=== PATIENT | female | born 1985 | race Two or more races ===

== ENCOUNTER 2020-12-22 11:29 | Emergency (ER) | payer MEDICAID, SELFPAY ==
--- NOTE | 2020-12-23 14:44 | ED.GENADULT ---
HPI - General Adult General Stated complaint: TOOTH PAIN History of Present Illness HPI narrative: I was informed patient LwT from the waiting room I was not involved in patient's care. Related Data Allergies Allergy/AdvReac Type Severity Reaction Status Date / Time codeine Allergy Severe ABDOMINAL Unverified 08/11/20 17:09 [From Tylenol-Codeine] CRAMPING, nausea vomiting amoxicillin [AMOXICILLIN] Allergy Unknown DIARRRHEA, Unverified 08/11/20 17:09 swelling in the feet, rash, nause, swelling of feet, diarrhea ibuprofen [From MOTRIN] Allergy Unknown STOMACH Unverified 08/11/20 17:09 UPSET, upset stomach/stomach pain Codeine Sulfate Allergy Unknown headaches, Uncoded 05/22/17 00:00 upset stomach PMFSH Social History Social History Advance Directives: No Advance Directives Information Provided: No Discharge Plan Discharge Patient Disposition: Left Without Being Seen Interventions: LWBS Worksheet Last Done: 12/22/20 12:17 Discharge Date/Time: 12/22/20 12:50
== END 2020-12-22 12:50 | disposition left against medical advice (07) ==
PROVIDERS: Emergency Provider Emergency Medicine
DX: K08.89 Other specified disorders of teeth and supporting structures (principal)

== ENCOUNTER 2021-11-22 12:17 | Outpatient (REF) | payer MEDICAID, SELFPAY ==
--- NOTE | ~2021-11-22 | XR_ITS ---
EXAMINATION: CR RIGHT ELBOW. CR CERVICAL SPINE. CLINICAL INFORMATION: Cervical pain radiating down arm into right elbow. COMPARISON: C-spine films dated 01/21/2013. CT scan of the cervical spine dated 08/05/2015. TECHNIQUE: 3 views of the right elbow. 5 views of the cervical spine. FINDINGS: Right elbow: No acute fracture, dislocation, abnormal elbow joint effusion or joint calcification seen. No significant arthritic change noted. No radiopaque foreign body in the soft tissues. Cervical spine: Straightening of the cervical spine is seen, possibly related to muscle spasm versus patient positioning. No acute fracture or dislocation. Prevertebral soft tissues normal in thickness. Craniocervical junction and atlantoaxial articulations intact. No significant spondylosis. No significant facet arthropathy. Neural foramina bilaterally widely patent. XR/XR elbow RT min 3V IMPRESSION: 1. Normal right elbow. 2. Straightening of cervical spine, possibly related to muscle spasm versus patient positioning. Clinical correlation requested. 3. No cervical spine fracture.
--- NOTE | ~2021-11-22 | XR_ITS ---
EXAMINATION: CR RIGHT ELBOW. CR CERVICAL SPINE. CLINICAL INFORMATION: Cervical pain radiating down arm into right elbow. COMPARISON: C-spine films dated 01/21/2013. CT scan of the cervical spine dated 08/05/2015. TECHNIQUE: 3 views of the right elbow. 5 views of the cervical spine. FINDINGS: Right elbow: No acute fracture, dislocation, abnormal elbow joint effusion or joint calcification seen. No significant arthritic change noted. No radiopaque foreign body in the soft tissues. Cervical spine: Straightening of the cervical spine is seen, possibly related to muscle spasm versus patient positioning. No acute fracture or dislocation. Prevertebral soft tissues normal in thickness. Craniocervical junction and atlantoaxial articulations intact. No significant spondylosis. No significant facet arthropathy. Neural foramina bilaterally widely patent. XR/XR cervical spine 4V IMPRESSION: 1. Normal right elbow. 2. Straightening of cervical spine, possibly related to muscle spasm versus patient positioning. Clinical correlation requested. 3. No cervical spine fracture.
== END 2021-11-22 12:18 | disposition home or self-care (01) ==
LOC: HO.XRAY 12:17
PROVIDERS: PCP Internal Medicine; Visit Provider Emergency Medicine
DX: M25.521 Pain in right elbow (principal); M54.2 Cervicalgia; S89.92XA Unspecified injury of left lower leg, initial encounter
CPT/HCPCS: 72050; 73080

== ENCOUNTER 2022-08-21 09:30 | Outpatient (REF) | payer MEDICAID, SELFPAY ==
[2022-08-21 10:35] LABS: COVID-19 Test Positive (Negative); IDNOW Serial# 55D5AD1C
== END 2022-08-21 09:31 | disposition home or self-care (01) ==
LOC: HO.LAB 09:30
PROVIDERS: Visit Provider Internal Medicine
DX: Z20.822 Contact with and (suspected) exposure to COVID-19 (principal)
CPT/HCPCS: 87635; C9803

== ENCOUNTER 2022-12-20 10:11 | Outpatient (REF) | payer MEDICAID, SELFPAY ==
--- NOTE | ~2022-12-20 | XR_ITS ---
EXAMINATION: XR elbow LT min 3V CLINICAL INFORMATION: Elbow pain COMPARISON: Elbow radiographs 11/22/2021 TECHNIQUE: 3 views of the elbow XR/XR elbow LT min 3V FINDINGS/IMPRESSION: Tiny osseous fragment noted adjacent to the lateral epicondyle may reflect sequelae of age-indeterminate avulsion injury. Joint spaces are maintained. No joint effusion. Soft tissues are unremarkable.
--- NOTE | ~2022-12-20 | XR_ITS ---
EXAMINATION: XR LUMBOSACRAL SPINE CLINICAL INFORMATION: Reason for Exam LOW BACK PAIN COMPARISON: Lumbar spine radiographs 06/04/2018 TECHNIQUE: 5 views of the lumbar spine FINDINGS: 5 nonrib-bearing lumbar-type vertebral bodies. Vertebral body heights are maintained. Alignment is maintained. No pars defects. Disc space heights are maintained. Paravertebral soft tissues are unremarkable. XR/XR lumbar spine 4V min IMPRESSION: * No significant degenerative disc disease.
== END 2022-12-20 10:12 | disposition home or self-care (01) ==
LOC: HO.XRAY 10:11
PROVIDERS: Visit Provider Internal Medicine
DX: M54.50 Low back pain, unspecified (principal); G89.29 Other chronic pain; S32.009S Unspecified fracture of unspecified lumbar vertebra, sequela
CPT/HCPCS: 72110; 73080

== ENCOUNTER 2023-01-09 10:29 | Outpatient (REF) | payer MEDICAID, SELFPAY ==
--- NOTE | ~2023-01-09 | MR_ITS ---
EXAMINATION: MR LUMBAR SPINE WITHOUT CONTRAST CLINICAL INFORMATION: Chronic low back pain. COMPARISON: Plain films of the lumbar spine 12/20/2022. MRI scan of the lumbar spine 11/04/2014. TECHNIQUE: MRI of the lumbar spine was obtained using routine sequences without contrast. FINDINGS: VERTEBRAL BODIES AND PARASPINAL STRUCTURES: There is anatomic alignment of the vertebral bodies. Intervertebral disc heights are maintained, but there is mild disc desiccation at L4-L5. The vertebral bodies have normal height and contour and no fractures are demonstrated. Marrow signal is homogenous. The visualized retroperitoneal structures are unremarkable. There are multiple small adnexal cysts bilaterally, more numerous on the left. CONUS MEDULLARIS AND CAUDA EQUINA: Normal, terminating at the level of L1. The lower thoracic spinal cord appears normal. The cauda equina nerve roots and filum terminale appear normal. SPINAL LEVELS: L1-L2: The facet joints appear normal bilaterally. Disc contour is normal. There is no central stenosis or foraminal narrowing. L2-L3: The facet joints appear normal bilaterally. Disc contour is normal. There is no central stenosis or foraminal narrowing. L3-L4: The facet joints appear normal. There is a left foraminal disc protrusion with impingement on the exiting left L3 nerve root, new compared to prior imaging. There is no central stenosis. L4-L5: The facet joints appear normal. There is a posterior disc protrusion which is most prominent in the midline which distorts the ventral thecal sac and there is mild narrowing of the bilateral subarticular recesses, new compared to prior imaging. There is mild central stenosis. There is an inferior foraminal disc protrusion on the left without exiting nerve root impingement. L5-S1: The facet joints appear normal bilaterally. There is mild diffuse disc bulge, but there is no central stenosis. The neural foramina are patent bilaterally. MR/MR lumbar spine wo con IMPRESSION: 1. At L3-L4 there is a left foraminal disc protrusion impinging on the exiting left L3 nerve root. There is no central stenosis. 2. At L4-L5 there is a posterior disc protrusion which distorts the ventral thecal sac and there is mild narrowing of the subarticular recesses. There is mild central stenosis. 3. There are no acute fractures or subluxations.
== END 2023-01-09 10:30 | disposition home or self-care (01) ==
LOC: HO.MRI 10:29
PROVIDERS: Visit Provider Internal Medicine
DX: M54.50 Low back pain, unspecified (principal); R10.33 Periumbilical pain
CPT/HCPCS: 72148; 99202

== ENCOUNTER 2023-01-24 10:15 | Outpatient (REF) | payer MEDICAID, SELFPAY ==
--- NOTE | ~2023-01-24 | CT_ITS ---
EXAMINATION: CT ABDOMEN AND PELVIS WITHOUT CONTRAST CLINICAL INFORMATION: Periumbilical pain. COMPARISON: CT abdomen and pelvis dated 12/24/2017. TECHNIQUE: Multidetector volumetric imaging was performed from the superior aspect of the liver through the pubic symphysis. Sagittal and coronal reformatted images were obtained on the technologist's workstation. This CT examination was performed using dose optimization techniques as appropriate, variously including the following: *Automated exposure control *Adjustment of mA and/or kV according to patient size (this includes techniques or standardized protocols for targeted exams where dose is matched to indication/reason for exam; i.e. extremities or head) *Use of iterative reconstruction technique DLP: 607 mGy-cm FINDINGS: LUNG BASES: There is mild left base linear scar/subsegmental atelectasis. LIVER, GALLBLADDER, AND BILIARY TREE: The liver is normal in size, shape, and attenuation. No focal hepatic lesion or biliary ductal dilatation is present. The gallbladder is unremarkable with no evidence of radiopaque gallstones, gallbladder wall thickening, or obvious pericholecystic inflammatory changes. PANCREAS: Unremarkable. SPLEEN: Unremarkable. ADRENAL GLANDS: Unremarkable. KIDNEYS AND URETERS: The kidneys are normal in size, shape, and attenuation. No hydronephrosis, hydroureter, or calculi seen. No perinephric stranding. BLADDER: Unremarkable. GASTROINTESTINAL TRACT: There is minimal diverticulosis, without acute diverticulitis. No obstruction, free intraperitoneal air or abscess is seen. There is no focal bowel wall thickening. The vermiform appendix appears normal. ABDOMINAL WALL: There is a minimal fat-containing umbilical hernia. LYMPH NODES: Normal. VASCULAR: Unremarkable. PELVIC VISCERA: The uterus is unremarkable. The right ovary is somewhat prominent measuring 4.2 x 3.0 cm (4:567), and the left ovary measures approximately 2.6 x 1.9 cm (4:518). OSSEOUS STRUCTURES: Unremarkable. CT/CT abdomen pelvis wo IV con IMPRESSION: 1. There is minimal diverticulosis, without acute diverticulitis. 2. There is mild prominence of the right ovary, which can be further evaluated with dedicated pelvic ultrasound, if clinically indicated. 3. There is a minimal fat-containing umbilical hernia. Fleischner guidelines were followed.
== END 2023-01-24 10:16 | disposition home or self-care (01) ==
LOC: HO.CT 10:15
PROVIDERS: Visit Provider Surgery
DX: R10.33 Periumbilical pain (principal)
CPT/HCPCS: 74176

== ENCOUNTER → 2023-01-25 08:47 | Outpatient (BNVA) | payer MEDICAID, SELFPAY | PROVIDERS: PCP Internal Medicine; Visit Provider Physician Assistant | DX: M77.12 Lateral epicondylitis, left elbow (principal) | CPT/HCPCS: 99202 ==

== ENCOUNTER → 2023-02-04 11:04 | Outpatient (BNVA) | payer MEDICAID, SELFPAY | PROVIDERS: PCP Registered Nurse; Visit Provider Surgery | DX: R10.33 Periumbilical pain (principal) | CPT/HCPCS: 99212 ==

== ENCOUNTER → 2023-02-18 10:17 | Outpatient (BNVA) | payer MEDICAID, SELFPAY | PROVIDERS: PCP Registered Nurse; Visit Provider Internal Medicine | DX: M54.16 Radiculopathy, lumbar region (principal); M62.830 Muscle spasm of back | CPT/HCPCS: 99202 ==

== ENCOUNTER 2023-03-01 10:30 | Outpatient (REF) | payer MEDICAID, SELFPAY ==
--- NOTE | ~2023-03-01 | MM_ITS ---
EXAMINATION: MM DIAGNOSTIC DIGITAL BREAST TOMOSYNTHESIS, BILATERAL US TARGETED BREAST, LEFT CLINICAL INFORMATION: Palpable lump left breast The lifetime risk of breast cancer based on the Tyrer-Cuzick Model is 12.3%. COMPARISON: Mammography: None TECHNIQUE: Digital breast tomosynthesis is performed in both the craniocaudal and mediolateral oblique views along with computer-aided detection (CAD). Synthesized 2D images are generated from the tomosynthesis. Additional spot magnification views of the left breast in craniocaudal and 90 degree mediolateral views performed. Targeted left breast ultrasound. FINDINGS: There are scattered areas of fibroglandular density (ACR BI-RADS breast composition Category b). There are no significant masses, abnormal calcifications, or other abnormalities. There is a question of some microcalcifications about the region of palpable abnormality but which are seen to represent artifact. Targeted left breast ultrasound to palpable region did not demonstrate any abnormal cystic or solid masses. There is a small region of diminished density within the epidermis/dermis which may be related to bruise with no underlying parenchymal lesions. No edematous changes identified within the breast parenchyma. Results are discussed with the patient at time of visit. MM/MM tomosynthesis diagnostic BI IMPRESSION: No mammographic or ultrasound evidence of malignancy. ASSESSMENT: BI-RADS 1: Negative RECOMMENDATION: Clinical follow-up.
== END 2023-03-01 10:31 | disposition home or self-care (01) ==
LOC: HO.MAMMO 10:30
PROVIDERS: PCP Registered Nurse; Visit Provider Registered Nurse
DX: N63.24 Unspecified lump in the left breast, lower inner quadrant (principal); N63.23 Unspecified lump in the left breast, lower outer quadrant
CPT/HCPCS: 76642; 77062; 77066

== ENCOUNTER 2023-07-09 17:34 | Outpatient (REF) | payer MEDICAID, SELFPAY | END 2023-07-09 17:35 | disposition home or self-care (01) | LOC: HO.HHCLNP 17:34 | PROVIDERS: Visit Provider Internal Medicine | DX: R10.2 Pelvic and perineal pain (principal) | CPT/HCPCS: 87086; 87147 ==

== ENCOUNTER 2023-10-02 18:20 | Outpatient (REF) | payer MEDICAID, SELFPAY ==
[2023-10-04 21:34] LABS: C. trachomatis RNA TMA NOT DETECTED (NOT DETECTED); N. gonorrhoeae RNA TMA NOT DETECTED (NOT DETECTED)
== END 2023-10-02 18:21 | disposition home or self-care (01) ==
LOC: HO.HHCLNP 18:20
PROVIDERS: Visit Provider Family Medicine
DX: N39.0 Urinary tract infection, site not specified (principal)
CPT/HCPCS: 36415; 81513; 87086; 87147; 87491; 87591

== ENCOUNTER 2024-01-27 15:21 | Outpatient (REF) | payer MEDICAID, SELFPAY ==
[2024-01-27 16:31] LABS: Anion Gap 14 (12-20); Blood Urea Nitrogen 10 mg/dL (9-16); Calcium 9.9 mg/dL (8.4-10.2); Carbon Dioxide 29 mmol/L (22-29); Chloride 103 mmol/L (96-108); Estimated Glomerular Filt Rate > 60; Glucose Random 190 mg/dL (60-115); Potassium 4.8 mmol/L (3.3-5.1); Sodium 141 mmol/L (135-145)
== END 2024-01-27 15:22 | disposition home or self-care (01) ==
LOC: HO.LAB 15:21
PROVIDERS: PCP General Practice; Visit Provider General Practice
DX: L03.211 Cellulitis of face (principal)
CPT/HCPCS: 36415; 80048

== ENCOUNTER 2024-01-28 10:03 | Outpatient (REF) | payer MEDICAID, SELFPAY ==
--- NOTE | ~2024-01-28 | CT_ITS ---
EXAMINATION: CT FACIAL BONES WITH CONTRAST CLINICAL INFORMATION: Facial cellulitis. COMPARISON: CT facial bones 04/12/2016. TECHNIQUE: Axial 2 mm thin and reformatted 1 mm thin sagittal coronal images of facial bones were obtained following IV 85 metal Omnipaque 350. This CT examination was performed using dose optimization techniques as appropriate, variously including the following: *Automated exposure control *Adjustment of mA and/or kV according to patient size (this includes techniques or standardized protocols for targeted exams where dose is matched to indication/reason for exam; i.e. extremities or head) *Use of iterative reconstruction technique DLP: 211. mGy-cm FINDINGS: Visualized intracranial brain parenchyma appears symmetrical. The lateral ventricles are normal. There is diffuse mucoperiosteal thickening involving left maxillary, frontal, anterior and middle ethmoid sinuses. There is upward titration left left ostiomeatal and frontoethmoidal recesses from mucosal thickening. There is minimal right frontal and middle ethmoid sinus mucoperiosteal thickening. The bony sinus fuentes, lamina papyracea and cribriform plate is intact. There is mild annular displacement of medial wall left orbit likely old fracture. Otherwise the bony orbits are intact and symmetrical. Bilateral optic globe, optic nerve intra and extra conal soft tissues are normal. No periapical soft tissue seen. The nasal bone is normal. Visualized nasopharyngeal, oropharyngeal the airways widely patent. The parapharyngeal, prevertebral and paravertebral soft soft tissues are normal. Bilateral submandibular and parotid glands are symmetrical and normal. Bilateral TM joints are symmetric and normal. The mandible is intact. No periapical cyst or dental abscess seen. There the chain teeth along the upper mandible. No abnormal alveolar order buccal soft tissue tissue mass or abscess seen. There are nonspecific anterior neck lymph nodes measuring normal size no soft tissue swelling around or inferior to the mandible.. Bilateral carotid arteries are normal caliber. There is mild medial deviation of right proximal internal carotid artery to the midline in the parapharyngeal space. CT/CT facial bones w IV con IMPRESSION: Chronic bilateral maxillary, left ethmoid and frontal sinus inflammatory changes. Mild deformity medial wall of left orbit likely old injury. There is no acute fracture involving maxillofacial, nasal or mandibular bones. No evidence of neck or dental abscess.
[2024-01-28] MEDS: iohexoL 350 MG/ML 100 ML INFUS..BTL IV (11:10)
== END 2024-01-28 10:04 | disposition home or self-care (01) ==
LOC: HO.CT 10:03
PROVIDERS: PCP General Practice; Visit Provider General Practice
DX: L03.211 Cellulitis of face (principal)
CPT/HCPCS: 70487; Q9967

== ENCOUNTER 2024-02-05 11:25 | Outpatient (REF) | payer MEDICAID, SELFPAY ==
[2024-02-08 07:13] LABS: TS Negative Control Passed; TS Panel A 1; TS Panel B 0; TS Positive Control Passed; TSpotTB Negative (Negative)
== END 2024-02-05 11:26 | disposition home or self-care (01) ==
LOC: HO.HHCL 11:25
PROVIDERS: Visit Provider General Practice
DX: Z11.1 Encounter for screening for respiratory tuberculosis (principal)
CPT/HCPCS: 36415; 86481

== ENCOUNTER 2024-03-04 12:18 | Outpatient (REF) | payer MEDICAID, SELFPAY | END 2024-03-04 12:19 | disposition home or self-care (01) | LOC: HO.HHCL 12:18 | PROVIDERS: Visit Provider General Practice | DX: Z13.89 Encounter for screening for other disorder (principal) ==

== ENCOUNTER 2024-05-22 14:10 | Outpatient (REF) | payer MEDICAID, SELFPAY ==
--- NOTE | ~2024-05-22 | XR_ITS ---
EXAMINATION: XR HAND, RIGHT CLINICAL INFORMATION: Pain in right hand after trauma COMPARISON: None available. TECHNIQUE: PA, lateral, and oblique views of the right hand. FINDINGS: The bones and soft tissues are normal. No fracture. Alignment is anatomic. Joint spaces are maintained. No erosions or soft tissue calcifications. XR/XR hand RT min 3V IMPRESSION: Normal right hand.
== END 2024-05-22 14:11 | disposition home or self-care (01) ==
LOC: HO.XRAY 14:10
PROVIDERS: Visit Provider Internal Medicine
DX: M79.641 Pain in right hand (principal)
CPT/HCPCS: 73130

== ENCOUNTER 2025-07-15 10:48 | Outpatient (REF) | payer MEDICAID, SELFPAY ==
--- OUTSIDE RECORDS SUMMARY | 2025-07-15 12:22 | XMS_ITS | Encounter Summary ---
Author Organization [employer] Address [address] [place] [address] Care Team Providers Care Neurology Director Name Role Phone Barbara Kirkland MD Primary Care Provider [phone] Zane Rae Unavailable Unavailable Name, Ketan SOW Primary Care Provider [phone] Brittany Rowley Primary Care Provider [phone] Reason for Visit * Reason Onset Date Comments Nurse Triage 09/25/2023 Encounter Details Date Type Department Care Team (Late st Contact Info) Description 09/25/2023 Telephone [facility] MEDICINE [address] [place] [address] Barbara Kirkland MD [address] [place], [place] [id number] Nurse Triage Social History Tobacco Use Types Packs/Day Years Used Date Smoking Tobacco: Every Day Cigarettes Passive Smoke Exposure: Current Smokeless Tobacco: Never Alcohol Use Standard Drinks/Week Comments Yes 0 (1 standard drink = 0.6 oz pur e alcohol) rare Depression Answer Date Recorded Patient Health Questionnaire-9 Score 7 09/03/2023 Housing Stability Answer Date Recorded What is your housing situation today? I have tamibaylee whitley 09/18/[address] you li ve. Do you have problems with any of the following? None of the above 09/18/2023 Food Insecurity Answer Date Recorded Within the past 12 months, y ou worried that your food would run out before you got money to buy more: Never True 09/18/2023 Within the past 12 months,th e food you bought just didn't last and you didn't have enough money to get more: Never True 10/ Transportation Answer Date Recorded In the past 12 months, has l ack of transportation kept you from medical appts, meetings, work or from getting things needed for daily living? No 09/18/2023 Utilities Answer Date Recorded In the past 12 months, has t he electric, gas, oil or water company threatened to shut off services in your home? No 09/18/2023 Depression Answer Date Recorded Patient Health Questionnaire-2 Score 2 09/03/2023 Comments No Sex and Gender Information Value Date Recorded Sex Assigned at Female 09/24/2022 10:17 AM EDT Legal Sex Female 10:17 AM EDT Gender Identity Female 09/24/2022 10:17 AM EDT Sexual Orientation Straight 09/24/2022 10 :17 AM EDT documented as of this encounter Miscellaneous Notes * Telephone Encounter - Ana Laura Meredith RN - 09/25/2023 4:35 PM EDT Images from the original note were not included. MD Ana Laura Bermeo RN; [facility] Red Team Nurses Caller: Unspecified (Today, 2:13 PM) We cannot diagnose UTI from other types of infection, or from other chronic conditions on the phone. Needs to be seen, walk in center would be the best, or closer by urgent care to her? Call to Pt , Pt is at work and isn't supposed to be on the phone. Pt declines [facility] requests apt onlydoesn't care how far out it is, though Pt is advised to be seen as soon as possible. Apt obtained with Dr. Jay 10/02/23 @ 1000am * Telephone Encounter - Ana Laura Meredith RN - 09/25/2023 2:31 PM EDT Triage call Pt reports urinary symptoms for about a week now. Pt reports burning with urination, itchiness and foul odor. Pt reports drinking adequate liquids at this time. Pt is offered to come to [facility] today open till 8pm but, doesn't want to do that. Pt doesn't want to wait around sick people . Pt also reports that work schedule makes it difficult to come to facility. Pt reports that the doctor sent Pt a one time pill that took care of everything in 3 days but, doesn't know the name of this pill. Pt is requesting medication be sent to pharmacy without having to come to see provider. Advised will forward this information to PCP and nursing team. Pt asks if prescription will be in pharmacytoday. Explained protocol is to have Pt be seen and to obtain a urine sample. Advised that there will not be a response today but, possibly tomorrow. Pt reports has been trying to get help since lastMonday. Advised again that [facility] is available. Protocol Used: Urinary Symptoms (Adult) Protocol-Based Disposition: See in Office or Video Visit Today Video visit not offered Positive Triage Question: * Bad or foul-smelling urine * All higher-acuity triage questions were negative Care Advice Discussed: * Reasons To Call Back - Fever occurs - Pain or burning with urination - You become worse * Telephone Encounter - Nataly Salinas - 09/25/2023 2:13 PM EDT Symptom: Urine Symptoms Outcome: Schedule a same-day appointment or talk to a nurse or provider today Reason: Caller denied all higher acuity questions The caller accepted this outcome documented in this encounter Plan of Treatment Upcoming Encounters Date Type Department Care Team (Late st Contact Info) Description 07/30/2025 10:30 AM EDT Office Visit [facility] MEDICINE [address] [place] [address] Dany Dong MD [address] [place] [address] documented as of this encounter Visit Diagnoses Not on filedocumented in this encounter Additional Health Concerns Assessment Noted Time PHQ-9 Depression Total Score: 7 09/03/20 23 10:06 AM EDT documented as of this encounter Care Teams Neurology Director Relationship Specialty Start Date End Date Barbara Kirkland MD [address] [place] [address] PCP - General Family Medicine 07/26/23 08/04/24 Dari, MD Ketan [address] [place] [address] PCP - General Internal Medicine 08/05/24 09/10/24 Brittany Rowley FNP [address] [place] [address] PCP - General Family Medicine 09/11/24 Zane Rae FNP [address] [place] [id number] Nurse Practitioner Family Medicine 10/08/23 documented as of this encounter
--- OUTSIDE RECORDS SUMMARY | 2025-07-15 12:22 | XMS_ITS | Clinical Summary ---
Author Organization [facility] Address [address] [place] [address] Phone Care Team Providers Care Nuclear Equipment Test Engineer Name Role Phone Alexys Ramirez MD Primary Care Provider [phone] Allergies Active Allergy Reactions Criticality Noted Date Comments Amoxicillin Unknown 01/22/2025 Codeine Unknown 01/22/2025 Ibuprofen Unknown 01/22/2025 Medications methocarbamoL (ROBAXIN) 500 mg tablet Take 1 tablet (500 mg total) by mouth 2 (two) times a day for 10 days. 20 tablet 01/22/2025 Active Active Problems No known active problems Social History Tobacco Use Types Packs/Day Years Used Date Smoking Tobacco: Never Assessed Comments Unknown Sex and Gender Information Value Date Recorded Sex Assigned at Not on file Legal Sex Female 4:53 PM EST Gender Identity Not on file Sexual Orientation Not on file Obstetrics History Last Filed Vital Signs Vital Sign Reading Time Taken Comments Blood Pressure 125/89 01/22/2025 9:39 AM EST Pulse 86 01/22/2025 9:39 AM EST Temperature 37.2 C (99 F) 01/22/2025 9:39 AM EST Respiratory Rate 16 01/22/2025 9:39 AM EST Oxygen Saturation 100% 01/22/2025 9:39 AM EST Inhaled Oxygen Concentration - - Weight 81.6 kg (180 lb) 01/22/2025 9:39 AM EST Height 165.1 cm (5' 5 ) 01/22/2025 9:39 AM EST Body Mass Index 29.95 01/22/2025 9:39 AM EST Plan of Treatment Health Maintenance Due Date Last Done Comments Diabetes: Annual GFR (Glomerular Filtration Rate) 1986 Diabetes: Annual Foot Exam 1996 Diabetes: Annual Retina Eye Exam 1996 Hepatitis A Vaccines (1 of 2 - Risk 2-dose series) 2005 Hepatitis B Vaccines (1 of 3 - 19+ 3-dose series) 2005 Cervical Cancer Screening: P ap Smear 2007 COVID-19 Vaccine (2023-2 5 season) 2024 Depression Screening 11/25/2024 Cholesterol Screening (Lipid Panel) 01/22/2025 Diabetes: Annual Urine Albumin-Creatinine Ratio (uACR) 01/22/2025 Hepatitis C Screening 01/22/2025 Social Influencers of Health Screening 01/22/2025 Diabetes: Blood Sugar Contro l Test (HGBA1C) 03/12/2025 09/11/2024 Influenza Vaccine (#1) 2025 DTaP,Tdap,and Td Vaccines (3 - Td or Tdap) 03/04/2034 03/04/2024, 07/23/2017 HIV Screening Completed 12/14/2022 HIB Vaccines Aged Out No longer eligi ble based on patient's age to complete this topic HPV Vaccines Aged Out No longer eligi ble based on patient's age to complete this topic IPV Vaccines Aged Out No longer eligi ble based on patient's age to complete this topic MMR Vaccines Aged Out No longer eligi ble based on patient's age to complete this topic Meningococcal ACWY Vaccine Aged Out N o longer eligible based on patient's age to complete this topic Meningococcal B Vaccine Aged Out No l onger eligible based on patient's age to complete this topic Pneumococcal Vaccine: Pediatrics (0 to 5 Years) and At-Risk Patients (6 to 49 Years) Aged Out No longer eligible b ased on patient's age to complete this topic RSV Immunization Patients Under 20 months Aged Out No longer eligible b ased on patient's age to complete this topic Varicella Vaccines Aged Out No longer eligible based on patient's age to complete this topic Insurance [place] AUT[place] GENER[place] GENER[place] MED[place] - [place] Care Teams Nuclear Equipment Test Engineer Relationship Specialty Start Date End Date Alexys Ramirez MD [address] [place] [address] PCP - General Internal Medicine 11/02/14
[2025-07-15 13:36] LABS: Cholesterol 164 mg/dL (<200); Estimated Glomerular Filt Rate > 60; HDL Cholesterol 40 mg/dL (>40); Triglycerides 211 mg/dL (<150)
== END 2025-07-15 10:49 | disposition home or self-care (01) ==
LOC: HO.HHCL 10:48
PROVIDERS: PCP Nurse Practitioner Family; Visit Provider Nurse Practitioner Family
DX: N89.8 Other specified noninflammatory disorders of vagina (principal)
CPT/HCPCS: 36415; 80061; 82565